=== PATIENT | female | born 1975 | race Caucasian/White ===

== ENCOUNTER 2019-02-17 09:53 | Day surgery (SDC) | payer BC ==
[~2019-02-17 09:53] MED LIST: ACETAMINOPHEN 1,000 MG/100 ML BTL IV ONE
[2019-02-17] MEDS ORDERED: SEVOFLURANE 250 ML INH ONE (09:54)
[2019-02-17] MEDS ORDERED: MIDAZOLAM HCL 2MG/2ML VIAL IV ONE (09:54)
[2019-02-17] MEDS ORDERED: DEXAMETHASONE 4 MG/ML 1ML VIAL IVP ONE (09:54)
[2019-02-17] MEDS ORDERED: PROPOFOL 10 MG/ML VIAL IV ONE (09:54)
[2019-02-17] MEDS ORDERED: ONDANSETRON HCL IV 4 MG/2 ML VIAL IVP ONE (09:54)
[2019-02-17] MEDS ORDERED: FENTANYL PF 100MCG/2ML VIAL IV ONE (09:54)
[2019-02-17] MEDS ORDERED: KETOROLAC 30 MG/ML VIAL IVP ONE (09:54)
[2019-02-17] MEDS ORDERED: BUPIVACAINE 0.25% W/EPI MPF 30ML VIAL SQ ONE (12:05)
--- NOTE | 2019-02-18 08:41 | Operative Note ---
DATE OF SURGERY: 02/17/2019 Surgeon: Chace Moore DO PREOPERATIVE DIAGNOSIS: Torn lateral meniscus, left knee. POSTOPERATIVE DIAGNOSES: 1. 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 2. Medial mid patellar plica, left knee. 3. Chondromalacia of the patella, left knee. OPERATION: 1. Arthroscopic partial lateral meniscectomy, left knee. 2. Arthroscopic resection of medial mid patella plica, left knee. 3. Arthroscopic chondroplasty of the patella, left knee. DESCRIPTION OF PROCEDURE: This 43-year-old female was taken to the operating room and placed in the supine position on the operating room table. A general anesthetic was administered and the left lower extremity was elevated, exsanguinated, and the tourniquet inflated to 300 mmHg. Arthroscopic knee wilburn applied. Left knee prepped with Hibiclens and draped in the usual sterile fashion. An inferolateral portal was established for the 4 mm arthroscope and initial evaluation of the joint demonstrated normal appearance of the suprapatellar pouch but the patient did have a thickened fibrotic medial mid patella plica which was resected through an inferomedial portal. In addition, grade 2 chondromalacia of the median ridge and medial side of the patella was present, and a chondroplasty was performed to restore stability to the articular cartilage after it was determined to be unstable after probing. The trochlea, however, appeared normal. The medial compartment was entered, and the probing in the medial compartment did not reveal any abnormality of the articular cartilage nor was there any of the medial meniscus. The intracondylar notch was examined and found to be normal. The lateral compartment was entered and a tear of the lateral meniscus was present. It was determined that this patient had a discoid lateral meniscus which became torn and marked fragmentation of the meniscus was present. We resected the torn portion of the lateral meniscus and reconstructed it to have the shape of a normal lateral meniscus. This was then probed and confirmed to be stable. This did not enter the popliteal hiatus. The articular cartilage of the lateral compartment appeared normal. The joint was then copiously irrigated and suctioned removing all chips of meniscal tissue. The instruments were removed. The portals infiltrated with 0.25% Marcaine with epinephrine. Sterile dressings applied. Tourniquet and knee wilburn released, and the patient taken to the recovery room in satisfactory condition. GROSS PATHOLOGY: This patient demonstrated a thickened fibrotic medial mid patella plica as well as grade 2 chondromalacia of the patella and a markedly disrupted discoid lateral meniscus as described above. CC: DO DEREK Ramires
== END 2019-02-17 13:30 | disposition home or self-care (01) ==
LOC: SUR 09:53
PROVIDERS: ATTEND Orthopaedic Surgery
DX: S83.282A Other tear of lateral meniscus, current injury, left knee, initial encounter (principal); M67.52 Plica syndrome, left knee; M22.42 Chondromalacia patellae, left knee; F17.210 Nicotine dependence, cigarettes, uncomplicated
CPT/HCPCS: J1885; J2405